=== PATIENT | male | born 1990 ===

== ENCOUNTER → 2016-08-22 | Outpatient (CLI) | payer OTHER | LOC: PREOP 06:28 | PROVIDERS: ATTEND Surgery | DX: Z01.818 Encounter for other preprocedural examination (principal); R19.7 Diarrhea, unspecified ==

== ENCOUNTER 2016-08-26 08:37 | Day surgery (SDC) | payer OTHER ==
[~2016-08-26] VITALS: Ht 180.3 cm; Wt 71.7 kg
[2016-08-26] MEDS ORDERED: FLUMAZENIL (ROMAZICON) 0.1 MG/ML 5 ML VIAL INJ PRN (08:45)
[2016-08-26] MEDS ORDERED: NALOXONE 0.4 MG/ML 1 ML (NARCAN) VIAL IVP PRN (08:45)
[2016-08-26] MEDS ORDERED: NS IV 500 ML 500 ML IV ONE (08:45)
[2016-08-26] MEDS ORDERED: NS IV 500 ML 500 ML ONE (08:56)
--- NOTE | 2016-08-26 08:58 | Pre-Op Note & Conscious Sedat ---
Pre-Operative Progress Note H&P Reviewed The H&P was reviewed, patient examined and no changes noted. Date H&P Reviewed: Aug 26, 2016 Time H&P Reviewed: 08:58 Pre-Op Diagnosis: chronic diarrhea Conscious Sedation Pre-Proced ASA Class: 2 Airway Mallampati Classification: (tejon appropriate class) I. II. III, IV Lungs Heart ASA score ASA 1: a normal healthy patient ASA 2: a patient with a mild systemic disease (mid diabetes, controlled hypertension, obesity ASA 3: a patient with a severe systemic disease that limits activity (angina , COPD, prior Myocardial infarction) ASA 4: a patient with an incapacitating disease that is a constant threat to life (CHF, renal failure) ASA 5: a moribund patient not expected to survive 24 hrs. (ruptured aneurysm) ASA 6: a declared brain patient whose organs are being harvested. For emergent operations, add the letter E after the classification Grade 1 Sedation Plan: Discussed options with patient/fam Note The patient is an appropriate candidate to undergo the planned procedure, sedation, and anesthesia. The patient immediately re-assessed prior to indication. NICKO ESCALONA MD Aug 26, 2016 8:58 am
[2016-08-26 09:17] VITALS: BP 114/75
[2016-08-26] MEDS ORDERED: MIDAZOLAM 2 MG/2 ML (VERSED) VIAL ONE ×4 (09:21)
[2016-08-26] MEDS ORDERED: fentaNYL INJECTION 100 MCG/2 ML AMP ONE ×2 (09:21)
[2016-08-26] MEDS: MIDAZOLAM 2 MG/2 ML (VERSED) VIAL IVP PRN ×3 (09:25→09:31)
[2016-08-26] MEDS: fentaNYL INJECTION 100 MCG/2 ML AMP IVP PRN ×4 (09:26→09:35)
--- NOTE | 2016-08-26 09:48 | Progress Note-Post Operative ---
Post-Operative Progess Note Pre-Operative Diagnosis chronic diarrhea Post-Operative Diagnosis normal examination Post-Op Procedure Note Date of Procedure: Aug 26, 2016 Name of Procedure: colonoscopy to cecum Anesthesia Type sedation NICKO ESCALONA MD Aug 26, 2016 9:48 am
--- NOTE | 2016-08-26 09:48 | Discharge Inst-Simple/Standard ---
Discharge Inst-Standard Discharge Medications New, Converted or Re-Newed RX: Other Patient Instructions/Follow Up Plan of Care/Instructions/FU: follow-up with his primary physician Activity as Tolerated: Yes Discharge Diet: No Restrictions NICKO ESCALONA MD Aug 26, 2016 9:48 am
[2016-08-26 09:50] VITALS: BP 121/55
[2016-08-26 10:20] VITALS: BP 108/70
--- NOTE | 2016-08-26 10:26 | PROCEDURE REPORT ---
PROCEDURE PHYSICIAN: NICKO ESCALONA DATE OF PROCEDURE: 08/26/2016 PROCEDURE: Colonoscopy. SURGEON: Yaron INDICATION FOR THE PROCEDURE: This young man came in for colonoscopy to evaluate diarrhea of several months duration. Informed consent was obtained after reviewing the procedure in detail. He denied any family history of polyps or colon cancer. DESCRIPTION OF PROCEDURE: He was placed in left lateral decubitus position and his vital signs were monitored. Conscious sedation was achieved using Versed and fentanyl. Digital rectal examination was unremarkable. The colonoscope was then introduced into the rectum and advanced all the way up to the cecum. The quality of bowel preparation was excellent. The scope was then withdrawn slowly and the mucosa examined in a systematic fashion. There was no abnormality. He tolerated the procedure well and was taken back to the nursing area in a stable condition. IMPRESSION: 1. Diarrhea. 2. Normal colonoscopy. 3. Recommend treating symptomatically. Job ID: [id number] Dictated Date: 08/26/2016 09:46:06 Desktop Manager Date: 08/26/2016 10:23:05 / darius ZHANG
[2016-08-26 10:45] VITALS: BP 108/70
== END 2016-08-26 10:45 | disposition home or self-care (01) ==
LOC: ENDO 08:37
PROVIDERS: ATTEND Surgery
DX: R19.7 Diarrhea, unspecified (principal)